=== PATIENT | male | born 1950 | race Caucasian/White ===

== ENCOUNTER 2020-12-29 17:23 | Inpatient (IN) | payer MEDICARE, MEDICAID ==
[~2020-12-29 17:23] MED LIST: Iopamidol 370 76% 100 ML VIAL ONE; Iopamidol 370 76% 50 ML VIAL FS ONE
[2020-12-29] MEDS ORDERED: Atropine Sulfate 1 mg/10 ml Syringe ONE (17:28)
[2020-12-29] MEDS ORDERED: Heparin 10,000 UNITS/ 10 ML VIAL ONE (17:40)
[2020-12-29] MEDS ORDERED: Ondansetron PF 4 MG/2 ML Vial ONE (17:46)
[2020-12-29] MEDS ORDERED: Aggrastat 12.5 MG/250 ML 250 ML ONE (17:47)
[2020-12-29] MEDS ORDERED: TICAGRELOR 90 MG TABLET ONE (18:46)
[2020-12-29] MEDS ORDERED: Zolpidem Tartrate 5 MG TAB PO PRN (21:36)
[2020-12-29] MEDS ORDERED: Acetaminophen/Codeine 30-300mg Tablet ONE (21:39)
[2020-12-29] MEDS ORDERED: Nitroglycerin 0.4 MG TAB (25 Tab Bottle) SL PRN (21:45)
[2020-12-29] MEDS ORDERED: cloNIDine 0.1 MG TAB PO PRN (21:45)
[2020-12-29] MEDS ORDERED: Morphine 2 MG/ML VIAL SLOW IVP PRN (21:45)
[2020-12-29] MEDS ORDERED: Milk Of Magnesia 30 ML UDCUP PO PRN (21:45)
[2020-12-29] MEDS ORDERED: Mag-Al 1200 mg/1200 mg/30 ML UDCUP PO PRN (21:45)
[2020-12-29] MEDS ORDERED: Morphine 4 MG/ML VIAL SLOW IVP PRN (21:45)
[2020-12-29] MEDS ORDERED: Acetaminophen/Codeine 30-300mg Tablet PO PRN ×2 (21:45)
[2020-12-29] MEDS ORDERED: Aggrastat 12.5 MG/250 ML 12.5 MG in Premix Bag 1 BAG IVPB SCH (21:45)
[2020-12-29] MEDS: Sodium Chloride 0.45% 1,000 ML IV SCH (21:54)
--- NOTE | 2020-12-30 00:05 | HP ---
ADMITTING DIAGNOSIS: Acute inferior myocardial infarction. HISTORY OF PRESENT ILLNESS: This is a very pleasant 70-year-old, but unfortunate gentleman, who had a history of myocardial infarction back in the . He said he underwent angioplasty and stent placement to the right coronary artery. He presented today after having pain, starting around 12 or 12:30 in the middle of the day. He presented to the emergency room in [place], where he was noted to have EKG changes compatible with inferior myocardial infarction. Cardiac enzymes were still unremarkable. He does have a history of tobacco abuse. He continues to smoke at least half a pack to a pack a day, he has done so for more than 50 years. He also has hypercholesterolemia and hypertension. He has been on medications for both these. 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 He was given heparin and aspirin in [place], was transferred here, was taken immediately to the cardiac laborer tin can. The report will come at the end of this dictation. PAST MEDICAL HISTORY: Significant for coronary artery disease, hypertension, hypercholesterolemia. He has had an appendectomy. He continues to smoke. COPD and also benign prostatic hypertrophy. SOCIAL HISTORY: He is . ALLERGIES: NONE. MEDICATIONS: He has an extensive list of medications which include 1. Atorvastatin 40 mg once a day. 2. Montelukast 10 mg one every day for COPD control. 3. He takes potassium 99 mg a day which is an ueay-ehn-uptkugw medication. 4. He also takes B12 every day. 5. He takes losartan 25 mg once a day. 6. Fenofibrate 160 mg once a day. 7. Bupropion HCL SR 150 mg once a day. 8. Omeprazole 40 mg once a day. 9. Vitamin D3. 10. Trazodone 50 mg one q.p.m. as needed for sleep at night. 11. Vascepa 1 g tablets, he takes two capsules twice a day. 12. He also takes tamsulosin 0.4 mg one q.p.m. REVIEW OF SYSTEMS: His 12-point review of systems is unremarkable except what is noted in the history of present illness with his acute [place]. He denied any GI complaints. No bleeding, constipation, or diarrhea. No complaints except for some problems with hypertrophy of the prostate and some problems with urination. He had no musculoskeletal complaints. No seizures or syncope. PHYSICAL EXAMINATION: GENERAL: Reveals an elderly gentleman, who is in some degree of distress with continued chest pain. He is alert. He is oriented. VITAL SIGNS: Blood pressure was stable. Heart rate was in the 80s. HEENT EXAM: Unremarkable. CHEST: Actually has decreased breath sounds, but was clear. There were no rales or rhonchi noted. CARDIOVASCULAR: Revealed a regular rate and rhythm without gross murmurs. ABDOMINAL EXAM: Unremarkable. EXTREMITIES: Showed no clubbing, cyanosis, or edema. Femoral pulses are present. He had no edema. NEUROLOGICAL: He appears to be grossly intact. LABORATORY DATA: Sodium was 139, potassium 4.2, BUN was 24, creatinine 1.54. Blood sugar was 106, alkaline phosphatase is 38. Triglycerides 179, this is from previous evaluation. His troponin I was 0.023. WBC was 7.7, hemoglobin is 16.7, hematocrit was 51.5, and platelet count was 180,000. Urinalysis was unremarkable. EKG showed acute inferior changes, compatible with acute inferior myocardial infarction. IMPRESSION: 1. Acute inferior myocardial infarction. The patient was taken emergently to the cardiac laborer tin can where he was found to have a totally occluded distal right coronary artery. The right coronary artery did show evidence of previous stent placement from the proximal all the way down to the distal area, to all the way down to the bifurcation of the posterior lateral branch, to the posterior descending artery, and showed 100% occlusion with inside the stented area distally. The left system did not have any flow-limiting disease, but did have heavy calcifications. No left ventriculogram was performed. He did undergo angioplasty and stent placement, with somewhat difficulty in being able to reopen this vessel, but eventually was able to be opened using Guide[employer]iner and multiple stents and different wires. We were able to finally engage and open the vessel, and we were able to place a stent with inside the more distal stent. This was then deployed. We tried to expand the stent as much as possible and eventually dilated up to a max inflation pressure to give internal diameter of 3.25 mm inside the vessel, but on inspection, did not appear that this was fully deployed due to heavy calcifications noted with inside the distal coronary artery, but he did have good flow and there was no evidence of any further flow-limiting disease in the right coronary artery. We did dilate throughout the remainder of the stented area in the mid to distal areas and also from the mid to distal two-thirds of the vessel with inside the stented areas. 2. Chronic obstructive pulmonary disease. He has not had any exacerbations at this time. We will continue his medications. 3. Benign prostatic hypertrophy. We will continue his medications for the prostate hypertrophy. 4. Hypertension. We will continue medications for his hypertension. 5. History of hypercholesterolemia. We will continue his statin medications. May need to increase the dose of the medicines if his cholesterol is elevated more than 70. At this time, he remained stable throughout the procedure. He did have some bradycardia and hypotension once we did re-establish flow down the distal right coronary artery. He did tolerate the procedure well otherwise. He was strongly encouraged to stop smoking, and we will continue to monitor. 6. History of tobacco abuse. He was strongly encouraged to stop smoking altogether. We will continue to monitor the cardiac enzymes. We will obtain an echocardiogram in the next few days. Job ID: [id number]
[2020-12-30 01:38] LABS: #Eosinphils 0.1 thou/uL (0.0-0.7); #Lymphocytes 1.5 thou/uL (1.20-3.40); #Monocytes 0.5 thou/uL (0.11-0.59); #Neutrophils 6.7 thou/uL (1.40-6.50); %Basophils 0.3 % (0.0-1.0); %Lymphocytes 17.1 % (21.0-51.0); %Monocytes 5.4 % (0.0-10.0); %Neutrophils 76.2 % (42.0-75.0); Hemoglobin 14.1 g/dL (14.0-18.0); Mean Corpuscular HGB CONC 33.3 g/dL (32.0-36.0); Mean Corpuscular Hemoglobin 31.1 pg (27.0-31.0); Mean Corpuscular Volume 93.4 fL (78.0-98.0); Mean Platelet Volume 7.3 fL (7.4-10.4); Platelet Count 162 thou/uL (130-400); RBC Distribution Width 12.8 % (11.5-14.5); Red Blood Cell (RBC) Count 4.54 mill/uL (4.70-6.10); White Blood Cell (WBC) Count 8.8 thou/uL (4.8-10.8)
[2020-12-30 02:16] LABS: Troponin I 31.504 ng/mL (< 0.028)
[2020-12-30 05:19] LABS: Albumin 3.3 g/dL (3.4-4.8); Alkaline Phosphatase 30 U/L (40-110); Anion Gap 13 mmol/L (10-20); Bilirubin, Total 0.6 mg/dL (0.2-1.2); Calc. Creatinine Clearance 0 mL/min (70-130); Calcium 8.4 mg/dL (7.8-10.44); Carbon Dioxide 18 mmol/L (23-31); Chloride 109 mmol/L (98-107); Globulin 2.5 g/dL (2.4-3.5); Glucose 95 mg/dL (83-110); Potassium 4.2 mmol/L (3.5-5.1); Protein, Total 5.8 g/dL (5.8-8.1); Sodium 136 mmol/L (136-145)
[2020-12-30 05:20] LABS: ALT (SGPT) 15 U/L (8-55); AST (SGOT) 67 U/L (5-34); BUN (Urea Nitrogen) 22 mg/dL (8.4-25.7)
[2020-12-30 08:02] LABS: #Eosinphils 0.1 thou/uL (0.0-0.7); #Lymphocytes 1.2 thou/uL (1.20-3.40); #Monocytes 0.5 thou/uL (0.11-0.59); #Neutrophils 7.1 thou/uL (1.40-6.50); %Basophils 0.4 % (0.0-1.0); %Eosinophils 1.5 % (0.0-10.0); %Lymphocytes 13.1 % (21.0-51.0); %Monocytes 5.8 % (0.0-10.0); %Neutrophils 79.3 % (42.0-75.0); Hemoglobin 14.3 g/dL (14.0-18.0); Mean Corpuscular HGB CONC 34.1 g/dL (32.0-36.0); Mean Corpuscular Hemoglobin 32.3 pg (27.0-31.0); Mean Corpuscular Volume 94.7 fL (78.0-98.0); Mean Platelet Volume 7.6 fL (7.4-10.4); Platelet Count 144 thou/uL (130-400); RBC Distribution Width 12.9 % (11.5-14.5); Red Blood Cell (RBC) Count 4.44 mill/uL (4.70-6.10)
[2020-12-30] MEDS: Sodium Chloride 0.45% 1,000 ML IV SCH (08:08)
[2020-12-30] MEDS ORDERED: Lorazepam 1 MG TAB PO SCH (08:15)
[2020-12-30 08:30] LABS: Troponin I 36.967 ng/mL (< 0.028)
[2020-12-30] MEDS ORDERED: Carvedilol 3.125 MG TAB PO SCH (09:00)
[2020-12-30] MEDS: Fenofibrate Nanocrystallized 145 MG TAB PO SCH (09:01)
[2020-12-30] MEDS: Bupropion 150 MG SR TAB PO SCH (09:01)
[2020-12-30] MEDS: Icosapent Ethyl 1 GM CAPSULE PO SCH ×2 (09:01→20:54)
[2020-12-30] MEDS: TICAGRELOR 90 MG TABLET PO SCH ×2 (09:02→20:54)
[2020-12-30] MEDS ORDERED: Sodium Chloride 0.9% 10 ML ONE (09:04)
[2020-12-30] MEDS ORDERED: Carvedilol 3.125 MG TAB ONE ×3 (09:05→10:28)
[2020-12-30] MEDS: Losartan 25 MG TAB PO SCH (09:05)
[2020-12-30] MEDS ORDERED: Losartan 25 MG TAB ONE (09:05)
[2020-12-30] MEDS ORDERED: Aspirin 81 mg Enteric Coated Tablet ONE (09:07)
[2020-12-30] MEDS: Aspirin Chewable 81 MG TAB PO SCH (09:08)
[2020-12-30] MEDS ORDERED: Aspirin Chewable 81 MG TAB ONE (09:08)
[2020-12-30] MEDS: Carvedilol 3.125 MG TAB PO SCH ×2 (10:29→20:55)
--- NOTE | 2020-12-30 12:56 | EKG ---
Test Reason : STAT Blood Pressure : / mmHG Vent. Rate : 050 BPM Atrial Rate : 050 BPM P-R Int : 234 ms QRS Dur : 128 ms QT Int : 450 ms P-R-T Axes : 028 046 043 degrees QTc Int : 410 ms Sinus bradycardia with 1st degree A-V block Right bundle branch block Abnormal ECG No previous ECGs available Confirmed by DR. Sarah RONQUILLO ([id number]) on 12/30/2020 12:56:07 PM Referred By: Confirmed By:DR. Sarah RONQUILLO
[2020-12-30] MEDS ORDERED: Atorvastatin Calcium 40 MG TAB PO SCH (21:00)
[2020-12-30] MEDS ORDERED: Tamsulosin HCl 0.4 MG CAP PO SCH (21:00)
[2020-12-31 08:31] VITALS: TEMP 98.1
[2020-12-31] MEDS: Losartan 25 MG TAB PO SCH (08:34)
[2020-12-31] MEDS: Bupropion 150 MG SR TAB PO SCH (08:34)
[2020-12-31] MEDS: Carvedilol 3.125 MG TAB PO SCH (08:35)
[2020-12-31] MEDS: Fenofibrate Nanocrystallized 145 MG TAB PO SCH (08:35)
[2020-12-31] MEDS: Aspirin Chewable 81 MG TAB PO SCH (08:35)
[2020-12-31] MEDS: TICAGRELOR 90 MG TABLET PO SCH (08:36)
[2020-12-31] MEDS: Icosapent Ethyl 1 GM CAPSULE PO SCH (08:36)
[2020-12-31 10:50] VITALS: BP 123/59
--- NOTE | 2020-12-31 12:03 | DIS ---
DATE OF ADMISSION: 12/29/2020 DATE OF DISCHARGE: 12/31/2020 ADMITTING DIAGNOSES: Acute inferior myocardial infarction and ST-segment elevation. His other admitting diagnosis included hypertension, dyslipidemia, tobacco abuse, gastroesophageal reflux disease, anxiety, benign prostatic hypertrophy. DISCHARGE DIAGNOSES: 1. Acute inferior myocardial infarction and ST-segment elevation. 2. Hypertension. 3. Dyslipidemia. 4. Tobacco abuse. 5. Gastroesophageal reflux disease. 6. Anxiety. 7. Benign prostatic hypertrophy. PROCEDURE IN HOSPITAL: Included emergent cardiac catheterization with angioplasty and stent placement to the distal right coronary artery for in-stent restenoses. DISCHARGE MEDICATIONS: Include: 1. Atorvastatin 40 mg a day. 2. Montelukast 10 mg once a day for COPD control. 3. Potassium 99 mg a day, which is an dmlq-zju-usnjekp medication. 4. B12 daily. 5. Losartan 25 mg a day. 6. Fenofibrate 160 mg a day. 7. Bupropion HCL SR 150 mg once a day. 8. Omeprazole 40 mg a day. 9. Vitamin D3. 10. Trazodone 50 mg q.p.m. as needed for sleep. 11. Vascepa, he takes 1 g tablets, he takes four tablets a day. 12. Tamsulosin 0.4 mg one q.p.m. He also will be on: 1. Aspirin 81 mg a day. 2. Brilinta 90 mg b.i.d. 3. Nitroglycerin 1/150 sublingual tablets p.r.n. as needed for chest pain. FOLLOWUP: His followup will be with me in about 1 month in the office. HOSPITAL COURSE: This very unfortunate 70-year-old gentleman was admitted via the emergency room. 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 He has a long history of coronary artery disease. He had undergone angioplasty and stent placement previously in the . During the cardiac catheterization, it was noted he did have stent placements from the proximal all the way down to the distal right coronary artery all the down to the bifurcation. At the time of the cardiac catheterization, he had a totally occluded right coronary artery with in-stent restenosis in the distal segment. He underwent a somewhat difficult procedure with angioplasty and stent placement to the distal right coronary with the in-stent restenosis. We did place a 3.0 x 20 mm drug-eluting stent inside the most distal stented area, which was actually 100% occluded. We were able to open this up, but he still had some 20% residual stenosis. The stent would not completely deploy due to the calcifications inside the stented area previously, but he did have good runoff into the distal right coronary artery, it is a somewhat small vessel, however, but there is no significant flow-limiting disease in the distal right coronary artery. Also, his other vessels did show heavy calcifications in the left main, left anterior descending artery, and left circumflex, but there was no flow-limiting disease noted in these vessels. He did have a 30% distal left main stenosis. The left ventricular systolic function remained well preserved. Ejection fraction by echocardiogram was about 50% to 55% with some mild inferior wall hypokinesis. His peak troponin I was 36.9. He has done very well through his hospital course. He does have some evidence of nicotine withdrawal. He has become very agitated. I have had a long discussion with him about this smoking and he needs to stop absolutely, and we will continue to monitor the patient. We will continue to encourage him not to smoke any further, and as noted, I will see him back in the office in about a month. Job ID: [id number]
--- NOTE | 2021-01-02 05:16 | PQF ---
Dear : Prachi Jurado Date Please exercise your independent, professional judgment in responding to the clarification form. Clinical indicators are provided on the bottom of this form for your review Can you please further clarify the diagnosis of the patient? Please check appropriate box(es): [ ] NSTEMI was due to in-stent stenosis [ ] NSTEMI was not due to in-stent stenosis [ ] Other diagnosis please specify____STEMI-inferiorly due to instent restonosis,thrombosis [ ] Unable to determine Physician Signature: Date/Time: For continuity of documentation, please document condition throughout progress notes and discharge summary. Thank You. To be completed by CDI/Coding staff for physician review: Present Clinical Indicators - Signs / Symptoms / Labs Results and Location in Medical Record [ x ] Acute inferior myocardial infarction H and P pg.1 [ x ] Underwent angioplasty and stent placement to the right coronary artery H and P pg.1 [ x ] Found to have occluded distal right coronary artery H and P pg.3 [ x ] Distal RCA InStent restenosis Cardiac lab report pg.1 [ x ] Troponin: 31.504H, 36.967H Laboratory Present Risk Factors Results and Location in Medical Record [ x ] 70 years old H and P pg.1 [ x ] Hx of ID H and P pg.1 [ x ] Hx of tobacco abuse H and P pg.1 [ x ] HTN H and P pg.1 [ x ] HLD H and P pg.1 [ x ] CAD H and P pg.1 [ x ] COPD H and P pg.1 Present Treatments Results and Location in Medical Record [ x ] Angioplasty Cardiac lab report pg.1 [ x ] IV Fluids MAR [ x ] Cardiology Consult Dr. 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
== END 2020-12-31 12:13 | disposition home or self-care (01) | DRG 246 ==
LOC: CCL 17:23 → CCU 18:02 → PACU-TCU 12-30 07:42 → 2NO 12-30 13:17
PROVIDERS: ADMIT Internal Medicine Cardiovascular Disease; ATTEND Internal Medicine Cardiovascular Disease
PROC: 027034Z Dilation of Coronary Artery, One Artery with Drug-eluting Intraluminal Device, Percutaneous Approach (ICD-10-PCS; principal; 2020-12-29)
PROC: B2111ZZ Fluoroscopy of Multiple Coronary Arteries using Low Osmolar Contrast (ICD-10-PCS; 2020-12-29)
DX: I97.190 Other postprocedural cardiac functional disturbances following cardiac surgery (principal); I21.11 ST elevation (STEMI) myocardial infarction involving right coronary artery; T82.855A Stenosis of coronary artery stent, initial encounter; F17.213 Nicotine dependence, cigarettes, with withdrawal; Z20.822 Contact with and (suspected) exposure to COVID-19; I25.10 Atherosclerotic heart disease of native coronary artery without angina pectoris; I10 Essential (primary) hypertension; E78.00 Pure hypercholesterolemia, unspecified; J44.9 Chronic obstructive pulmonary disease, unspecified; N40.0 Benign prostatic hyperplasia without lower urinary tract symptoms; F41.9 Anxiety disorder, unspecified; E78.5 Hyperlipidemia, unspecified; Y84.0 Cardiac catheterization as the cause of abnormal reaction of the patient, or of later complication, without mention of misadventure at the time of the procedure; Z90.49 Acquired absence of other specified parts of digestive tract; Z79.899 Other long term (current) drug therapy
CPT/HCPCS: 36415; 84484; 85025; 85347; 92941; 92977; 93005; 93010; 93306; 93454; 93798; C1769; C1874; C9606; J0461; J1644; J2405; J3246; Q9967

== ENCOUNTER 2021-05-05 15:13 | Outpatient (CLI) | payer MEDICARE, MEDICAID | END 2021-05-05 15:14 | disposition home or self-care (01) | LOC: RAD 15:13 | PROVIDERS: ATTEND Nurse Practitioner Family | DX: R06.02 Shortness of breath (principal); R91.8 Other nonspecific abnormal finding of lung field | CPT/HCPCS: 71046 ==

== ENCOUNTER 2021-08-26 09:08 | Outpatient (CLI) | payer MEDICARE, MEDICAID | END 2021-08-26 09:09 | disposition home or self-care (01) | LOC: ULT 09:08 | PROVIDERS: ATTEND Family Medicine | DX: Z13.6 Encounter for screening for cardiovascular disorders (principal); I65.23 Occlusion and stenosis of bilateral carotid arteries; F17.210 Nicotine dependence, cigarettes, uncomplicated; I25.10 Atherosclerotic heart disease of native coronary artery without angina pectoris; E78.2 Mixed hyperlipidemia | CPT/HCPCS: 76775 ==

== ENCOUNTER 2021-11-23 13:30 | Outpatient (CLI) | payer MEDICARE, MEDICAID, OTHER ==
[2021-11-23 14:30] LABS: #Basophils 0.1 10x3/uL (0.0-0.2); #Eosinphils 0.5 10x3/uL (0.0-0.5); #Monocytes 0.5 10x3/uL (0.0-1.1); #Neutrophils 5.2 10x3/uL (1.5-8.4); %Basophils 0.8 % (0.0-2.0); %Eosinophils 5.7 % (0.0-6.0); %Lymphocytes 21.2 % (18.0-47.0); %Monocytes 5.8 % (0.0-10.0); %Neutrophils 66.1 % (40.0-75.0); Mean Corpuscular HGB CONC 32.7 g/dL (32.0-36.0); Mean Corpuscular Hemoglobin 29.5 pg (27.0-33.0); Mean Corpuscular Volume 90.3 fl (81.2-95.1); Platelet Count 207 10x3/uL (150-450); Red Blood Cell (RBC) Count 4.74 10x6/uL (4.32-5.72); White Blood Cell (WBC) Count 7.9 10x3/uL (3.5-10.5)
[2021-11-23 14:54] LABS: ALT (SGPT) 12 U/L (8-55); AST (SGOT) 21 U/L (5-34); Albumin 4.3 g/dL (3.4-4.8); Alkaline Phosphatase 36 U/L (40-110); Anion Gap 11 mmol/L (10-20); BUN (Urea Nitrogen) 21 mg/dL (8.4-25.7); Bilirubin, Total 0.5 mg/dL (0.2-1.2); Calc. Creatinine Clearance 0 mL/min (70-130); Calcium 9.5 mg/dL (7.8-10.44); Carbon Dioxide 25 mmol/L (23-31); Chloride 106 mmol/L (98-107); Globulin 3.1 g/dL (2.4-3.5); Glucose 89 mg/dL (83-110); Potassium 5.4 mmol/L (3.5-5.1); Protein, Total 7.4 g/dL (5.8-8.1); Sodium 137 mmol/L (136-145)
[2021-11-24 02:55] LABS: SARS-CoV-2 PCR by NAA Not Detected (NotDetected)
== END 2021-11-23 13:31 | disposition home or self-care (01) ==
LOC: LABBT 13:30
PROVIDERS: ATTEND Internal Medicine Cardiovascular Disease
DX: Z01.812 Encounter for preprocedural laboratory examination (principal); Z20.822 Contact with and (suspected) exposure to COVID-19; K27.9 Peptic ulcer, site unspecified, unspecified as acute or chronic, without hemorrhage or perforation
CPT/HCPCS: 80053; 85025; U0003; U0005

== ENCOUNTER 2021-11-25 05:26 | Day surgery (SDC) | payer MEDICARE, MEDICAID ==
[2021-11-23 11:42] VITALS: BMI 27.9
[2021-11-25] MEDS ORDERED: Lidocaine 1% (PF) 30 ML VIAL ONE (06:28)
[2021-11-25] MEDS ORDERED: Heparin 10,000 UNITS/ 10 ML VIAL ONE (06:28)
[2021-11-25 07:45] LABS: Anion Gap 9 mmol/L (10-20); BUN (Urea Nitrogen) 17 mg/dL (8.4-25.7); Calc. Creatinine Clearance 48 mL/min (70-130); Calcium 9.6 mg/dL (7.8-10.44); Carbon Dioxide 25 mmol/L (23-31); Chloride 110 mmol/L (98-107); Glucose 94 mg/dL (83-110); Potassium 4.4 mmol/L (3.5-5.1); Sodium 140 mmol/L (136-145)
== END 2021-11-25 08:11 | disposition home or self-care (01) ==
LOC: SDC 05:26
PROVIDERS: ATTEND Internal Medicine Cardiovascular Disease
DX: I73.9 Peripheral vascular disease, unspecified (principal); I25.10 Atherosclerotic heart disease of native coronary artery without angina pectoris; I10 Essential (primary) hypertension; E78.00 Pure hypercholesterolemia, unspecified; K21.9 Gastro-esophageal reflux disease without esophagitis; J44.9 Chronic obstructive pulmonary disease, unspecified; I45.10 Unspecified right bundle-branch block; E78.2 Mixed hyperlipidemia; I25.2 Old myocardial infarction; Z53.9 Procedure and treatment not carried out, unspecified reason; Z87.891 Personal history of nicotine dependence; Z79.02 Long term (current) use of antithrombotics/antiplatelets; Z79.82 Long term (current) use of aspirin; Z79.899 Other long term (current) drug therapy; Z95.5 Presence of coronary angioplasty implant and graft
CPT/HCPCS: 80048; J1644; J2001

== ENCOUNTER 2021-12-21 12:14 | Outpatient (CLI) | payer MEDICARE, MEDICAID | END 2021-12-21 12:15 | disposition home or self-care (01) | LOC: RAD 12:14 | PROVIDERS: ATTEND Internal Medicine Critical Care Medicine | DX: R06.00 Dyspnea, unspecified (principal); J98.4 Other disorders of lung | CPT/HCPCS: 71046 ==

== ENCOUNTER 2022-04-05 07:33 | Outpatient (CLI) | payer MEDICARE, MEDICAID | END 2022-04-05 07:34 | disposition home or self-care (01) | LOC: BICULT 07:33 | PROVIDERS: ATTEND Internal Medicine Nephrology | DX: N18.30 Chronic kidney disease, stage 3 unspecified (principal); N28.1 Cyst of kidney, acquired | CPT/HCPCS: 76770; 93975 ==

== ENCOUNTER 2022-08-05 20:54 | Inpatient (IN) | payer OTHER ==
[2022-08-05 21:45] VITALS: BMI 28.3
[2022-08-05 22:42] LABS: SARS-CoV-2 NAA Rapid Test Not Detected (NotDetected)
[2022-08-06] MEDS ORDERED: Acetaminophen 325 MG TAB PO PRN (00:32)
[2022-08-06] MEDS ORDERED: Electrolyte Replacement Protocol 1 EACH FS SCH (00:45)
[2022-08-06 02:19] LABS: CKMB 1.7 ng/mL (0-6.6)
[2022-08-06 04:49] LABS: #Eosinphils 0.2 thou/uL (0.0-0.7); #Monocytes 0.4 thou/uL (0.11-0.59); #Neutrophils 5.6 thou/uL (1.40-6.50); %Basophils 0.4 % (0.0-1.0); %Eosinophils 2.4 % (0.0-10.0); %Lymphocytes 14.5 % (21.0-51.0); %Neutrophils 77.6 % (42.0-75.0); Hemoglobin 13.5 g/dL (14.0-18.0); Mean Corpuscular HGB CONC 34.2 g/dL (32.0-36.0); Mean Corpuscular Hemoglobin 30.8 pg (27.0-31.0); Mean Corpuscular Volume 90.2 fL (78.0-98.0); Mean Platelet Volume 6.9 fL (7.4-10.4); Platelet Count 186 thou/uL (130-400); RBC Distribution Width 12.4 % (11.5-14.5); Red Blood Cell (RBC) Count 4.36 mill/uL (4.70-6.10); White Blood Cell (WBC) Count 7.2 thou/uL (4.8-10.8)
[2022-08-06 05:06] LABS: Anion Gap 14 mmol/L (10-20); BUN (Urea Nitrogen) 21 mg/dL (8.4-25.7); Calc. Creatinine Clearance 57 mL/min (70-130); Calcium 9.2 mg/dL (7.8-10.44); Carbon Dioxide 20 mmol/L (23-31); Chloride 106 mmol/L (98-107); Estimated GFR 54; Glucose 86 mg/dL (83-110); Potassium 4.1 mmol/L (3.5-5.1); Sodium 136 mmol/L (136-145)
[2022-08-06 05:29] LABS: CKMB 1.9 ng/mL (0-6.6)
[2022-08-06] MEDS ORDERED: Magnesium 2 GM/50 ML(in water) 2 GM in Premix Bag 1 BAG IVPB SCH (06:00)
[2022-08-06] MEDS: Nitroglycerin 2% Ointment 1 INCH/1 GM Packet TOP SCH ×2 (06:11→15:34)
[2022-08-06] MEDS: Mometasone 100 MCG/Formoterol 5 MCG 120 PUFF INHALER INH SCH ×2 (06:48→18:21)
[2022-08-06] MEDS ORDERED: Ipratropium Oral Inhaler INH SCH (09:00)
[2022-08-06] MEDS: Aspirin Chewable 81 MG TAB PO SCH (09:36)
[2022-08-06] MEDS: Carvedilol 3.125 MG TAB PO SCH ×2 (09:36→20:00)
[2022-08-06] MEDS: Bupropion 150 MG SR TAB PO SCH (09:36)
[2022-08-06] MEDS: Fenofibrate Nanocrystallized 145 MG TAB PO SCH (09:37)
[2022-08-06] MEDS: Losartan 25 MG TAB PO SCH (09:38)
[2022-08-06] MEDS: TICAGRELOR 90 MG TABLET PO SCH ×2 (09:38→20:01)
[2022-08-06] MEDS ORDERED: Furosemide 20 MG/2 ML VIAL SLOW IVP SCH (11:15)
[2022-08-06 12:16] LABS: Actual Bicarbonate (HCO3v) 22 mEq/L (22-28); Base Excess -3.8 mEq/L (-2.0 to +3.0); Calcium, Ionized (venous) 1.19 mmol/L (1.16-1.32); Chloride (VBG) 103 mmol/L (98-106); Hemoglobin (Hb) 14.6 g/dL (12.6-17.4); Potassium (VBG) 4.11 mmol/L (3.70-5.30); Sodium 134.8 mmol/L (133-146); pH (venous) 7.33 (7.32-7.43)
[2022-08-06 12:20] LABS: Lactic Acid 1.5 mmol/L (0.5-2.2)
[2022-08-06] MEDS: Ipratropium Bromide 0.06% Nasal Inhaler 15ml EA NARE SCH ×3 (15:21→20:00)
[2022-08-06 17:44] LABS: Creatinine, Urine 26.05 mg/dL (63-166); Potassium, Urine 17.3 mmol/L
[2022-08-06] MEDS ORDERED: Montelukast Sodium 10 mg Tablet PO SCH (21:00)
[2022-08-06] MEDS ORDERED: traZODone HCl 50 MG TAB PO SCH (21:00)
[2022-08-06] MEDS ORDERED: Atorvastatin Calcium 40 MG TAB PO SCH (21:00)
[2022-08-07] MEDS: Nitroglycerin 2% Ointment 1 INCH/1 GM Packet TOP SCH ×2 (00:12→07:14)
[2022-08-07 04:52] LABS: #Eosinphils 0.2 thou/uL (0.0-0.7); #Monocytes 0.5 thou/uL (0.11-0.59); #Neutrophils 5.5 thou/uL (1.40-6.50); %Basophils 0.2 % (0.0-1.0); %Eosinophils 2.7 % (0.0-10.0); %Lymphocytes 13.9 % (21.0-51.0); %Neutrophils 76.2 % (42.0-75.0); Hemoglobin 13.6 g/dL (14.0-18.0); Mean Corpuscular HGB CONC 34.4 g/dL (32.0-36.0); Mean Corpuscular Hemoglobin 30.8 pg (27.0-31.0); Mean Corpuscular Volume 89.6 fL (78.0-98.0); Mean Platelet Volume 6.7 fL (7.4-10.4); Platelet Count 188 thou/uL (130-400); RBC Distribution Width 12.4 % (11.5-14.5); Red Blood Cell (RBC) Count 4.42 mill/uL (4.70-6.10); White Blood Cell (WBC) Count 7.2 thou/uL (4.8-10.8)
[2022-08-07 05:13] LABS: ALT (SGPT) 15 U/L (8-55); AST (SGOT) 21 U/L (5-34); Albumin 3.9 g/dL (3.4-4.8); Alkaline Phosphatase 39 U/L (40-110); Anion Gap 13 mmol/L (10-20); BUN (Urea Nitrogen) 20 mg/dL (8.4-25.7); Calc. Creatinine Clearance 58 mL/min (70-130); Carbon Dioxide 21 mmol/L (23-31); Chloride 104 mmol/L (98-107); Estimated GFR 55; Globulin 2.9 g/dL (2.4-3.5); Glucose 87 mg/dL (83-110); Magnesium 2.2 mg/dL (1.6-2.6); Phosphorus 2.9 mg/dL (2.3-4.7); Potassium 3.8 mmol/L (3.5-5.1); Protein, Total 6.8 g/dL (5.8-8.1); Sodium 134 mmol/L (136-145)
[2022-08-07] MEDS: Mometasone 100 MCG/Formoterol 5 MCG 120 PUFF INHALER INH SCH (07:10)
[2022-08-07] MEDS ORDERED: Furosemide 20 MG TAB PO SCH (09:00)
[2022-08-07] MEDS: Carvedilol 3.125 MG TAB PO SCH (09:19)
[2022-08-07] MEDS: Bupropion 150 MG SR TAB PO SCH (09:19)
[2022-08-07] MEDS: Aspirin Chewable 81 MG TAB PO SCH (09:19)
[2022-08-07] MEDS: Fenofibrate Nanocrystallized 145 MG TAB PO SCH (09:19)
[2022-08-07] MEDS: Losartan 25 MG TAB PO SCH (09:19)
[2022-08-07] MEDS: TICAGRELOR 90 MG TABLET PO SCH (09:21)
[2022-08-07] MEDS: Ipratropium Bromide 0.06% Nasal Inhaler 15ml EA NARE SCH (09:50)
[2022-08-07 11:59] VITALS: BP 119/68; TEMP 97.4
== END 2022-08-07 13:25 | disposition home or self-care (01) | DRG 291 ==
LOC: 2SW 21:00 → OBSVTOIN 08-07 08:34
PROVIDERS: ADMIT Family Medicine; ATTEND Family Medicine
DX: I13.0 Hypertensive heart and chronic kidney disease with heart failure and stage 1 through stage 4 chronic kidney disease, or unspecified chronic kidney disease (principal); I50.33 Acute on chronic diastolic (congestive) heart failure; J96.01 Acute respiratory failure with hypoxia; Z20.822 Contact with and (suspected) exposure to COVID-19; E78.5 Hyperlipidemia, unspecified; I25.10 Atherosclerotic heart disease of native coronary artery without angina pectoris; J43.9 Emphysema, unspecified; K21.9 Gastro-esophageal reflux disease without esophagitis; N40.0 Benign prostatic hyperplasia without lower urinary tract symptoms; N18.30 Chronic kidney disease, stage 3 unspecified; E78.2 Mixed hyperlipidemia; E78.00 Pure hypercholesterolemia, unspecified; I45.10 Unspecified right bundle-branch block; F32.A Depression, unspecified; Z95.5 Presence of coronary angioplasty implant and graft; I25.2 Old myocardial infarction; Z79.899 Other long term (current) drug therapy; Z79.82 Long term (current) use of aspirin; Z79.52 Long term (current) use of systemic steroids; Z79.51 Long term (current) use of inhaled steroids; Z90.49 Acquired absence of other specified parts of digestive tract; Z98.42 Cataract extraction status, left eye; Z98.41 Cataract extraction status, right eye; Z82.49 Family history of ischemic heart disease and other diseases of the circulatory system; Z87.891 Personal history of nicotine dependence; Z83.3 Family history of diabetes mellitus
CPT/HCPCS: 36415; 36416; 71250; 80048; 80053; 82436; 82553; 82570; 82805; 83605; 83735; 83880; 84100; 84133; 84145; 84300; 84484; 85025; 93970; 94640; 94760; 96374; 96375; G0378; J1940; J3475; J7620; U0002

== ENCOUNTER 2023-05-19 07:57 | Outpatient (CLI) | payer OTHER | END 2023-05-19 07:58 | disposition home or self-care (01) | LOC: CT 07:57 | PROVIDERS: ATTEND Internal Medicine Critical Care Medicine | DX: J44.9 Chronic obstructive pulmonary disease, unspecified (principal); R91.8 Other nonspecific abnormal finding of lung field; I25.10 Atherosclerotic heart disease of native coronary artery without angina pectoris | CPT/HCPCS: 71250 ==

== ENCOUNTER 2023-05-27 13:11 | Inpatient (IN) | payer OTHER ==
[2023-05-27 14:06] VITALS: BMI 27.2
[2023-05-27] MEDS ORDERED: Lactated Ringer's 1,000 ML IV SCH (14:45)
[2023-05-27 16:23] LABS: #Monocytes 0.4 thou/uL (0.11-0.59); #Neutrophils 9.5 thou/uL (1.40-6.50); %Basophils 0.1 % (0.0-1.0); %Eosinophils 0.4 % (0.0-10.0); %Lymphocytes 5.2 % (21.0-51.0); %Monocytes 4.2 % (0.0-10.0); %Neutrophils 89.7 % (42.0-75.0); Hemoglobin 12.6 g/dL (14.0-18.0); Mean Corpuscular HGB CONC 31.7 g/dL (32.0-36.0); Mean Corpuscular Hemoglobin 29.1 pg (27.0-31.0); Mean Corpuscular Volume 91.9 fl (78.0-98.0); Mean Platelet Volume 9.3 fL (7.4-10.4); Platelet Count 166 10x3/uL (130-400); RBC Distribution Width 13.2 % (11.5-14.5); Red Blood Cell (RBC) Count 4.33 mill/uL (4.70-6.10); White Blood Cell (WBC) Count 10.6 10x3/uL (4.8-10.8)
[2023-05-27 16:47] LABS: ALT (SGPT) 9 U/L (8-55); AST (SGOT) 14 U/L (5-34); Albumin 3.6 g/dL (3.4-4.8); Alkaline Phosphatase 31 U/L (40-110); Anion Gap 13 mmol/L (10-20); BUN (Urea Nitrogen) 17 mg/dL (8.4-25.7); Calc. Creatinine Clearance 51 mL/min (70-130); Calcium 9.2 mg/dL (7.8-10.44); Carbon Dioxide 21 mmol/L (23-31); Chloride 104 mmol/L (98-107); Estimated GFR 50; Glucose 96 mg/dL (83-110); Magnesium 1.7 mg/dL (1.6-2.6); Phosphorus 2.7 mg/dL (2.3-4.7); Potassium 4.6 mmol/L (3.5-5.1); Protein, Total 6.6 g/dL (5.8-8.1); Sodium 133 mmol/L (136-145)
[2023-05-27] MEDS: Lactated Ringer's 1,000 ML IV SCH ×2 (16:51→20:51)
[2023-05-27] MEDS: Piperacillin/Tazobactam 3.375 GM in Sodium Chloride 0.9% 100 ML IVPB SCH (16:52)
[2023-05-27] MEDS ORDERED: fentaNYL PF 100 MCG/2 ML SYRINGE ONE (16:58)
[2023-05-27] MEDS ORDERED: Bupivacaine HCl 0.5%/Epinephrine 1:200,000/PF 30 ml Vial ONE (17:13)
[2023-05-27] MEDS ORDERED: Albumin 5% 500 ML ONE (17:26)
[2023-05-27] MEDS ORDERED: Phenylephrine 10 MG/ML VIAL ONE (17:26)
[2023-05-27] MEDS ORDERED: Vasopressin 20 UNITS/ML VIAL ONE (17:26)
[2023-05-27] MEDS ORDERED: Norepinephrine 4 MG/4 ML VIAL ONE (17:26)
[2023-05-27] MEDS ORDERED: Lidocaine 1% PF 5 ML VIAL ONE (17:37)
[2023-05-27] MEDS ORDERED: PROPOFOL 200 MG/20 ML VIAL ONE (17:37)
[2023-05-27] MEDS ORDERED: Succinylcholine Chloride 100 MG/5 ML SYRINGE FS ONE (17:37)
[2023-05-27] MEDS ORDERED: Rocuronium Bromide 10 MG/ML (10ML VIAL) ONE (17:37)
[2023-05-27] MEDS ORDERED: PHENYLEPHRINE-NS 100 MCG/ML 10 ML SYRINGE ONE (17:37)
[2023-05-27] MEDS ORDERED: Ondansetron ODT 4 MG TAB PO PRN (18:12)
[2023-05-27] MEDS ORDERED: SUGAMMADEX SODIUM 200 MG/2 ML VIAL ONE (18:13)
[2023-05-27] MEDS ORDERED: Non-Formulary Item 1 EACH (Fluticasone/Vilanterol [Breo Ellipta 200-25 Mcg Inh] 1 EACH Bl INH PRN (18:25)
[2023-05-27] MEDS ORDERED: fentaNYL 50 mcg/mL 1 mL Vial ONE (19:00)
[2023-05-27] MEDS: traZODone HCl 50 MG TAB PO SCH (20:46)
[2023-05-27] MEDS: Montelukast Sodium 10 mg Tablet PO SCH (20:46)
[2023-05-27] MEDS: Carvedilol 3.125 MG TAB PO SCH (20:47)
[2023-05-27] MEDS: Pantoprazole 40 MG VIAL IVP SCH (20:47)
[2023-05-27] MEDS ORDERED: Non-Formulary Item 1 EACH (Ipratropium/Albuterol Sulfate [Combivent Respimat] 120 PUFF In INH SCH (21:00)
[2023-05-28] MEDS: Morphine 4 MG/ML VIAL SLOW IVP PRN ×3 (00:47→20:41)
[2023-05-28] MEDS: Piperacillin/Tazobactam 3.375 GM in Sodium Chloride 0.9% 100 ML IVPB SCH ×3 (00:47→16:49)
[2023-05-28 04:19] LABS: Hemoglobin 10.8 g/dL (14.0-18.0); Mean Corpuscular HGB CONC 31.9 g/dL (32.0-36.0); Mean Corpuscular Hemoglobin 29.2 pg (27.0-31.0); Mean Corpuscular Volume 91.6 fl (78.0-98.0); Mean Platelet Volume 9.5 fL (7.4-10.4); Platelet Count 169 10x3/uL (130-400); RBC Distribution Width 13.3 % (11.5-14.5); White Blood Cell (WBC) Count 10.2 10x3/uL (4.8-10.8)
[2023-05-28 04:25] LABS: Delete Auto Diff?? YES; Manual Diff?? YES
[2023-05-28 04:44] LABS: ALT (SGPT) 7 U/L (8-55); AST (SGOT) 12 U/L (5-34); Albumin 3.2 g/dL (3.4-4.8); Alkaline Phosphatase 26 U/L (40-110); Anion Gap 12 mmol/L (10-20); BUN (Urea Nitrogen) 18 mg/dL (8.4-25.7); Bilirubin, Total 0.8 mg/dL (0.2-1.2); Calc. Creatinine Clearance 52 mL/min (70-130); Calcium 8.5 mg/dL (7.8-10.44); Carbon Dioxide 22 mmol/L (23-31); Chloride 103 mmol/L (98-107); Estimated GFR 51; Globulin 2.6 g/dL (2.4-3.5); Glucose 94 mg/dL (83-110); Lipase 119 U/L (8-78); Potassium 4.2 mmol/L (3.5-5.1); Protein, Total 5.8 g/dL (5.8-8.1); Sodium 133 mmol/L (136-145)
[2023-05-28 04:48] LABS: Band 3 % (5-11); Burr Cells SLIGHT = 2-5 cells HPF (0-1); CellaVision Operator ID lab.abc; Eosinophils 1 % (0-10); Lymphocytes 3 % (21-51); Monocytes 2 % (0-10); Neutrophil 91 % (42-75); Platelet Adequacy Comment Platelets Normal; Poikilocytosis SLIGHT = 6-15 cells HPF (0-5); Total Cell Count 100
[2023-05-28] MEDS: Budesonide 0.5 MG/2 ML NEB NEB SCH ×2 (07:11→18:46)
[2023-05-28] MEDS: Lactated Ringer's 1,000 ML IV SCH ×2 (07:32→16:48)
[2023-05-28] MEDS: Pantoprazole 40 MG VIAL IVP SCH ×2 (09:34→20:40)
[2023-05-28] MEDS: methylPREDNISolone Sod Succ 40 MG VIAL IVP SCH (09:35)
[2023-05-28] MEDS: Losartan 25 MG TAB PO SCH (09:35)
[2023-05-28] MEDS: Aspirin Chewable 81 MG TAB PO SCH (09:35)
[2023-05-28] MEDS: Carvedilol 3.125 MG TAB PO SCH ×2 (09:35→20:40)
[2023-05-28] MEDS: Bupropion 150 MG XL TAB PO SCH (09:35)
[2023-05-28] MEDS: Ipratropium/Albuterol 3 ML NEB NEB PRN (18:47)
[2023-05-28] MEDS: Montelukast Sodium 10 mg Tablet PO SCH (20:40)
[2023-05-28] MEDS: traZODone HCl 50 MG TAB PO SCH (20:41)
[2023-05-29] MEDS: Piperacillin/Tazobactam 3.375 GM in Sodium Chloride 0.9% 100 ML IVPB SCH ×3 (00:55→18:04)
[2023-05-29] MEDS: Lactated Ringer's 1,000 ML IV SCH ×4 (01:35→19:44)
[2023-05-29 05:44] LABS: #Monocytes 0.5 thou/uL (0.11-0.59); #Neutrophils 7.8 thou/uL (1.40-6.50); %Basophils 0.1 % (0.0-1.0); %Lymphocytes 6.7 % (21.0-51.0); %Monocytes 5.3 % (0.0-10.0); %Neutrophils 87.6 % (42.0-75.0); Hemoglobin 10.6 g/dL (14.0-18.0); Mean Corpuscular HGB CONC 32.6 g/dL (32.0-36.0); Mean Corpuscular Hemoglobin 29.4 pg (27.0-31.0); Mean Platelet Volume 9.9 fL (7.4-10.4); Platelet Count 169 10x3/uL (130-400); RBC Distribution Width 13.1 % (11.5-14.5); Red Blood Cell (RBC) Count 3.61 mill/uL (4.70-6.10); White Blood Cell (WBC) Count 8.9 10x3/uL (4.8-10.8)
[2023-05-29 06:08] LABS: Anion Gap 13 mmol/L (10-20); BUN (Urea Nitrogen) 30 mg/dL (8.4-25.7); Calc. Creatinine Clearance 51 mL/min (70-130); Calcium 8.6 mg/dL (7.8-10.44); Carbon Dioxide 21 mmol/L (23-31); Chloride 105 mmol/L (98-107); Estimated GFR 51; Glucose 108 mg/dL (83-110); Potassium 4.5 mmol/L (3.5-5.1); Sodium 134 mmol/L (136-145)
[2023-05-29] MEDS: Budesonide 0.5 MG/2 ML NEB NEB SCH ×2 (07:01→18:39)
[2023-05-29] MEDS: methylPREDNISolone Sod Succ 40 MG VIAL IVP SCH (09:21)
[2023-05-29] MEDS: Aspirin Chewable 81 MG TAB PO SCH (09:22)
[2023-05-29] MEDS: Carvedilol 3.125 MG TAB PO SCH ×2 (09:22→21:12)
[2023-05-29] MEDS: Bupropion 150 MG XL TAB PO SCH (09:22)
[2023-05-29] MEDS: Losartan 25 MG TAB PO SCH (09:22)
[2023-05-29] MEDS: Pantoprazole 40 MG VIAL IVP SCH ×2 (10:13→21:12)
[2023-05-29] MEDS: Ipratropium/Albuterol 3 ML NEB NEB PRN (18:41)
[2023-05-29] MEDS: Montelukast Sodium 10 mg Tablet PO SCH (21:12)
[2023-05-29] MEDS: traZODone HCl 50 MG TAB PO SCH (21:12)
[2023-05-30] MEDS: Piperacillin/Tazobactam 3.375 GM in Sodium Chloride 0.9% 100 ML IVPB SCH ×2 (00:18→09:44)
[2023-05-30] MEDS: Ipratropium/Albuterol 3 ML NEB NEB PRN (01:12)
[2023-05-30 04:16] LABS: #Monocytes 0.4 thou/uL (0.11-0.59); #Neutrophils 6.3 thou/uL (1.40-6.50); %Eosinophils 0.1 % (0.0-10.0); %Lymphocytes 6.7 % (21.0-51.0); %Neutrophils 86.4 % (42.0-75.0); Hemoglobin 10.3 g/dL (14.0-18.0); Mean Corpuscular HGB CONC 32.5 g/dL (32.0-36.0); Mean Corpuscular Hemoglobin 28.9 pg (27.0-31.0); Mean Corpuscular Volume 88.8 fl (78.0-98.0); Mean Platelet Volume 9.3 fL (7.4-10.4); Platelet Count 196 10x3/uL (130-400); Red Blood Cell (RBC) Count 3.57 mill/uL (4.70-6.10); White Blood Cell (WBC) Count 7.3 10x3/uL (4.8-10.8)
[2023-05-30 04:42] LABS: Anion Gap 11 mmol/L (10-20); BUN (Urea Nitrogen) 28 mg/dL (8.4-25.7); Calc. Creatinine Clearance 57 mL/min (70-130); Calcium 8.6 mg/dL (7.8-10.44); Carbon Dioxide 25 mmol/L (23-31); Chloride 107 mmol/L (98-107); Estimated GFR 57; Glucose 123 mg/dL (83-110); Potassium 4.6 mmol/L (3.5-5.1); Sodium 138 mmol/L (136-145)
[2023-05-30] MEDS: Lactated Ringer's 1,000 ML IV SCH (05:52)
[2023-05-30] MEDS: Budesonide 0.5 MG/2 ML NEB NEB SCH (07:30)
[2023-05-30] MEDS: Pantoprazole 40 MG VIAL IVP SCH (09:44)
[2023-05-30] MEDS: Carvedilol 3.125 MG TAB PO SCH (09:44)
[2023-05-30] MEDS: Bupropion 150 MG XL TAB PO SCH (09:44)
[2023-05-30] MEDS: methylPREDNISolone Sod Succ 40 MG VIAL IVP SCH (09:44)
[2023-05-30] MEDS: Losartan 25 MG TAB PO SCH (09:45)
[2023-05-30] MEDS: Aspirin Chewable 81 MG TAB PO SCH (09:45)
[2023-05-30 15:53] VITALS: BP 171/78; TEMP 97.3
== END 2023-05-30 17:00 | disposition home or self-care (01) | DRG 357 ==
LOC: 2NO 13:11
PROVIDERS: ADMIT Internal Medicine; ATTEND Family Medicine
PROC: 0DJU4ZZ Inspection of Omentum, Percutaneous Endoscopic Approach (ICD-10-PCS; principal; 2023-05-27)
DX: K55.9 Vascular disorder of intestine, unspecified (principal); J96.11 Chronic respiratory failure with hypoxia; I25.10 Atherosclerotic heart disease of native coronary artery without angina pectoris; I12.9 Hypertensive chronic kidney disease with stage 1 through stage 4 chronic kidney disease, or unspecified chronic kidney disease; E78.5 Hyperlipidemia, unspecified; K21.9 Gastro-esophageal reflux disease without esophagitis; K59.00 Constipation, unspecified; K66.0 Peritoneal adhesions (postprocedural) (postinfection); N18.30 Chronic kidney disease, stage 3 unspecified; K63.89 Other specified diseases of intestine; J44.9 Chronic obstructive pulmonary disease, unspecified; Z95.5 Presence of coronary angioplasty implant and graft; Z79.899 Other long term (current) drug therapy; Z79.82 Long term (current) use of aspirin; I25.2 Old myocardial infarction
CPT/HCPCS: 36415; 76705; 80048; 80053; 83690; 83735; 84100; 85025; 87040; 94640; C9113; J1650; J2270; J2370; J2543; J2704; J2920; J3010; J3490; J7120; J7620; J7626; P9045

== ENCOUNTER 2025-10-10 13:07 | Outpatient (CLI) | payer OTHER, MEDICAID | END 2025-10-10 13:08 | disposition home or self-care (01) | LOC: RAD 13:07 | PROVIDERS: ATTEND Internal Medicine Critical Care Medicine | DX: R06.00 Dyspnea, unspecified (principal); J44.9 Chronic obstructive pulmonary disease, unspecified | CPT/HCPCS: 71046 ==